=== PATIENT | female | born 1950 | race Two or more races ===

== ENCOUNTER 2020-10-10 08:32 | Emergency (ER) | payer OTHER ==
[~2020-10-10] VITALS: Ht 157.5 cm; Wt 59.4 kg
[2020-10-10 10:22] VITALS: BP 145/88
== END 2020-10-10 12:42 | disposition home or self-care (01) ==
LOC: ER 08:32
DX: S32.048A Other fracture of fourth lumbar vertebra, initial encounter for closed fracture (principal); Z90.710 Acquired absence of both cervix and uterus; W18.39XA Other fall on same level, initial encounter; Y93.89 Activity, other specified; Y92.89 Other specified places as the place of occurrence of the external cause; Y99.8 Other external cause status
CPT/HCPCS: 72100; 72131; 93005